=== PATIENT | female | born 1970 | race African-American/Black ===

== ENCOUNTER 2016-07-06 11:27 | Emergency (ER) | payer BC ==
[2016-07-06] MEDS ORDERED: ONDANSETRON 4MG/2ML VIAL (J2405) As Ordered ONE (12:37)
[2016-07-06] MEDS ORDERED: KETOROLAC 30 MG/ML VIAL (J1885) As Ordered ONE (12:37)
[2016-07-06 12:57] LABS: BASO # 0.1 K/mm3 (0.0-0.2); BASO % 1.5 % (0.0-1.0); EOS # 0.2 K/mm3 (0.0-0.50); EOS % 2.4 % (0.0-3.0); LARGE UNSTAINED CELL # 0.1 K/mm3 (0.0-0.4); LARGE UNSTAINED CELL % 1.8 % (0.0-4.0); LYMPH # 3.2 K/mm3 (1.5-4.5); LYMPH % 38.5 % (24.0-44.0); MEAN CORPUSCULAR HEMOGLOBIN 30.6 pg (27.0-33.0); MEAN CORPUSCULAR HGB CONC 32.6 g/dl (32.0-36.5); MEAN CORPUSCULAR VOLUME 93.9 fl (80.0-96.0); MONO # 0.4 K/mm3 (0.0-0.8); MONO % 4.4 % (0.0-5.0); NEUTROPHILS # 4.1 K/mm3 (1.8-7.7); NEUTROPHILS % 51.4 % (36.0-66.0); PLATELET COUNT, AUTOMATED 203 k/mm3 (150-450); RED CELL DISTRIBUTION WIDTH 13.2 % (11.5-14.5)
[2016-07-06 13:23] LABS: ALBUMIN 3.8 GM/DL (3.2-5.2); ALKALINE PHOSPHATASE 72 U/L (45-117); ALT/SGPT 23 U/L (12-78); AMYLASE 45 U/L (25-115); ANION GAP 6 MEQ/L (8-16); AST/SGOT 11 U/L (15-37); BILIRUBIN,DIRECT < 0.1 MG/DL (0.0-0.2); BILIRUBIN,TOTAL 0.4 MG/DL (0.2-1.0); BLOOD UREA NITROGEN 7 MG/DL (7-18); CALCIUM LEVEL 9.1 MG/DL (8.5-10.1); CARBON DIOXIDE LEVEL 27 MEQ/L (21-32); CHLORIDE LEVEL 106 MEQ/L (98-107); CREATININE FOR GFR 0.72 MG/DL (0.55-1.02); GLOMERULAR FILTRATION RATE > 60.0 (>58); GLUCOSE, FASTING 97 MG/DL (70-105); POTASSIUM SERUM 3.8 MEQ/L (3.5-5.1); SODIUM LEVEL 139 MEQ/L (136-145); TOTAL PROTEIN 7.6 GM/DL (6.4-8.2)
--- NOTE | 2016-07-06 14:05 | REP ---
CT abdomen and pelvis without contrast, 07/06/2016: Indication: Mid abdominal pain, renal colic. Comparison: None. Technique: 3 mm spiral axial sections performed through the abdomen and pelvis without contrast. Lung bases are clear bilaterally. The liver, spleen, pancreas are unremarkable. The gallbladder partially contracted without stones, wall thickening or biliary dilatation. The adrenal glands are normal. There is moderate right renal pelviectasis with tapering at the right ureteral vesicle junction which can be consistent with narrowing and/or stenosis. There is no visualized obstructing calculi along the course of the right ureter. The left kidney also without hydronephrosis. There is no perinephric stranding seen bilaterally. Bladder is diffusely contracted and poorly visualized. Stomach and small bowel are within normal limits. Abdominal aorta is of normal course and caliber. There are no pathologically enlarged retroperitoneal nodes. Small umbilical hernia of 8 mm diameter contains omental fat only. The appendix is without inflammation terminal ileum is normal. Uterus is unremarkable. Ovaries are grossly normal in appearance. There is moderate diffuse retained colonic stool. There is no free air or ascites. Impression: Findings most compatible with moderate right renal pelviectasis and narrowing at the right ureteropelvic junction. No visualized obstructing ureteral calculi bilaterally. Unremarkable appendix. If symptoms persist may consider CT abdomen and pelvis with hematuria protocol. Signed by Freya Vines MD 07/08/2016 10:49 A
--- NOTE | 2016-07-06 15:03 | EDDOCDS ---
Nurse's Notes [facility] Name: Karissa Connors Age: 45 yrs Sex: Female : 1970 Arrival Date: 07/06/2016 Time: 11:27 Bed I3 / M3 Private MD: Other - Complete Info On Cds Diagnosis: Dysuria;Hematuria-No Stone on CT Presentation: 07/06 11:35 Presenting complaint: Patient states: pain in abdomen hurts worse with urination when [facility] it radiates into back and buttock, for a couple of days. Risk factors: the patient reports no vaginal bleeding. Adult Sepsis Screening: The patient does not have new or worsening altered mentation. Patient's respiratory rate is less than 22. Systolic blood pressure is greater than 100. Patient has a qSOFA score of 0- Negative Sepsis Screen. Suicide/Homicide risk assessment- the patient denies having any suicidal and/or homicidal ideations and does not present with any other emotional, behavioral or mental health complaints. Status: Patient is not a advisory services associate or dependent. Transition of care: patient was not received from another setting of care. 11:35 Acuity: JOANIE Level 3 [facility] 11:35 Method Of Arrival: Walkin/Carried/Asstd [facility] Triage Assessment: 11:37 General: Appears uncomfortable, Behavior is appropriate for age, cooperative. Pain: [facility] Location: back, buttocks and abdomen Pain currently is 7 out of 10 on a pain scale. Pt Declines HIV testing. GI: Reports lower abdominal pain, nausea. : Reports pain in lower back with urination. 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 none - PMHx: none; - PSHx: Tubal ligation; - Social history: Smoking status: Patient uses tobacco products, light tobacco smoker. No barriers to communication noted. - Family history: Not pertinent. - : The pt / caregiver states he / she is not on anticoagulants. Home medication list is obtained from the patient. - Exposure Risk Screening:: None identified. Screenin:39 Screening information is obtained from the patient. Fall risk: No risks identified. [facility] Assistance ADL's: requires no assistance with activities of daily living. Abuse/DV Screen: The patient / caregiver reports he/she is: not in a situation that causes fear, pain or injury. Nutritional screening: No deficits noted. Advance Directives: Currently, there is no health care proxy. There is no active DNR order. There is no living will. There is no Power of Rivet Sorter. home support is adequate. Assessment: 12:54 General: Appears in no apparent distress, Behavior is appropriate for age, cooperative. srm Neurological: No deficits noted. Cardiovascular: No deficits noted. GI: Abdomen is non- distended. : Reports pain lower quadrant(s) with urination. 13:37 Reassessment: Patient states symptoms have improved. awaiting rad and lab reports and srm QUENTIN chiu. General: Appears in no apparent distress, Behavior is appropriate for age, cooperative. Respiratory: No deficits noted. Derm: No deficits noted. 15:00 Adult Sepsis Screening: The patient does not have new or worsening altered mentation. dsf Patient's respiratory rate is less than 22. Systolic blood pressure is greater than 100. Patient has a qSOFA score of 0- Negative Sepsis Screen. General: Appears in no apparent distress, comfortable, Behavior is appropriate for age, cooperative. Pain: Pain currently is 3 out of 10 on a pain scale. Neurological: Level of Consciousness is awake, alert. Cardiovascular: Capillary refill < 3 seconds. Respiratory: Airway is patent Respiratory effort is even, unlabored, Respiratory pattern is regular, symmetrical. GI: Abdomen is non- distended Bowel sounds present X 4 quads. Abd is soft and non tender X 4 quads. Derm: Skin is pink, warm & dry. Vital Signs: 11:29 BP 108 / 83 RA Sitting (auto/reg); Pulse 82 RA; Resp 18 S; Temp 98.2(O); Pulse Ox 96% mt4 on R/A; Weight 69.85 kg (R); Height 5 ft. 5 in. (165.10 cm) (R); Pain 7/10; 13:32 BP 114 / 69; Pulse 57; Resp 20; Temp 97.9; Pulse Ox 97% ; Pain 3/10; jam1 14:44 BP 119 / 85; Pulse 67; Resp 20; Temp 97.3; Pulse Ox 98% ; Pain 3/10; jam1 11:29 Body Mass Index 25.63 (69.85 kg, 165.10 cm) mt4 Vitals: 11:29 Log In Time: July 06, 2016 at 11:27. mt4 ED Course: 11:28 Patient visited by Kita Contreras. mt4 11:28 Patient moved to Waiting mt4 11:29 Other - Complete Info On Cds is Private Physician. mt4 11:31 Patient moved to Pre RCE mt4 11:36 Triage Initiated cj 11:45 Patient moved to Triage 1 kr3 12:19 Reyna Robles PA-C is PHCP. ef1 12:20 Venkata Stringer MD is Attending Physician. ef1 12:21 Patient visited by Reyna Robles PA-C. ef1 12:29 Patient moved to I3 / M3 kr3 12:29 Pt greeted and oriented to ED. Patient advised of names of staff involved in care, jam1 location of call gonzalez, wait times and NPO status. Patient has correct armband on for positive identification. Placed in gown. Bed in low position. Call light in reach. Side rails up X 1. Door closed. 12:32 Urinalysis Sent. kr3 12:32 Urine Culture Sent. kr3 12:38 [facility] Payment Agreement was scanned into [employer] and attached to record. lg 12:44 Patient visited by Reyna Robles PA-C. ef1 12:45 The patient / caregiver is instructed regarding the plan of care and ED course. srm 12:45 Inserted saline lock: 20 gauge in right antecubital area and blood collected. srm 12:52 Basic Metabolic Profile Sent. srm 12:52 CBC with Diff Sent. srm 12:52 Lipase Sent. srm 12:52 Liver Profile Sent. srm 12:55 Patient visited by Lita Muñoz RN. srm 13:37 Patient visited by Lita Muñoz, CHERRIE. srm 14:13 Patient visited by Reyna Robles PA-C. ef1 14:34 CT ABD & PELVIS: No Contrast Returned. EDMS 14:40 Patient visited by Reyna Robles PA-C. ef1 14:44 Sourav Laughlin is Referral Physician. ef1 15:01 Discontinued lock intact, bleeding controlled, pressure dressing applied, No dsf redness/swelling at site. No procedures done that require assistance. Administered Medications: 12:46 Drug: NS 0.9% 1000 ml [sodium chloride 0.9 % intravenous solution] Route: IV; Rate: srm bolus; Site: right antecubital; 14:10 Follow up: IV Status: Completed infusion srm 15:00 Follow up: IV Status: Completed infusion; IV Intake: 1000ml dsf 12:46 Drug: Ondansetron 4 mg [ondansetron HCl 2 mg/mL intravenous solution (2 mL)] Route: srm IVP; Site: right femoral; 12:47 Drug: ketorolac 30 mg [ketorolac 30 mg/mL (1 mL) injection solution (1 mL)] Route: IVP; srm Site: right antecubital; 13:36 Follow up: Response: Pain is decreased srm Intake: 15:00 IV: 1000.00ml; Total: 1000.00ml. dsf Order Results: Lab Order: Amylase; SPEC'M 07/06/16 12:50 Test: AMYLASE; Value: 45; Range: 25-115; Units: U/L; Status: F Lab Order: Basic Metabolic Profile; SPEC'M 07/06/16 12:50 Test: GLUCOSE, FASTING; Value: 97; Range: 70-105; Units: MG/DL; Status: F Test: BLOOD UREA NITROGEN; Value: 7; Range: 7-18; Units: MG/DL; Status: F Test: CREATININE FOR GFR; Value: 0.72; Range: 0.55-1.02; Units: MG/DL; Status: F Test: GLOMERULAR FILTRATION RATE; Value: > 60.0; Range: >58; Status: F Test: SODIUM LEVEL; Value: 139; Range: 136-145; Units: MEQ/L; Status: F Test: POTASSIUM SERUM; Value: 3.8; Range: 3.5-5.1; Units: MEQ/L; Status: F Test: CHLORIDE LEVEL; Value: 106; Range: 98-107; Units: MEQ/L; Status: F Test: CARBON DIOXIDE LEVEL; Value: 27; Range: 21-32; Units: MEQ/L; Status: F Test: ANION GAP; Value: 6; Range: 8-16; Abnormal: Below low normal; Units: MEQ/L; Status: F Test: CALCIUM LEVEL; Value: 9.1; Range: 8.5-10.1; Units: MG/DL; Status: F Test Note: ; Units are mL/min/1.73 m2 Chronic Kidney Disease Staging per NKF: Stage I & II GFR >=60 Normal to Mildly Decreased Stage III GFR 30-59 Moderately Decreased Stage IV GFR 15-29 Severely Decreased Stage V GFR <15 Very Little GFR Left ESRD GFR <15 on RECRUITMENT OFFICER Lab Order: CBC with Diff; SPEC'M 07/06/16 12:50 Test: WHITE BLOOD COUNT; Value: 8.0; Range: 4.0-10.0; Units: K/mm3; Status: F Test: RED BLOOD COUNT; Value: 4.88; Range: 4.00-5.40; Units: M/mm3; Status: F Test: HEMOGLOBIN; Value: 14.9; Range: 12.0-16.0; Units: g/dl; Status: F Test: HEMATOCRIT; Value: 45.8; Range: 36.0-47.0; Units: %; Status: F Test: MEAN CORPUSCULAR VOLUME; Value: 93.9; Range: 80.0-96.0; Units: fl; Status: F Test: MEAN CORPUSCULAR HEMOGLOBIN; Value: 30.6; Range: 27.0-33.0; Units: pg; Status: F Test: MEAN CORPUSCULAR HGB CONC; Value: 32.6; Range: 32.0-36.5; Units: g/dl; Status: F Test: RED CELL DISTRIBUTION WIDTH; Value: 13.2; Range: 11.5-14.5; Units: %; Status: F Test: PLATELET COUNT, AUTOMATED; Value: 203; Range: 150-450; Units: k/mm3; Status: F Test: NEUTROPHILS %; Value: 51.4; Range: 36.0-66.0; Units: %; Status: F Test: LYMPH %; Value: 38.5; Range: 24.0-44.0; Units: %; Status: F Test: MONO %; Value: 4.4; Range: 0.0-5.0; Units: %; Status: F Test: EOS %; Value: 2.4; Range: 0.0-3.0; Units: %; Status: F Test: BASO %; Value: 1.5; Range: 0.0-1.0; Abnormal: Above high normal; Units: %; Status: F Test: LARGE UNSTAINED CELL %; Value: 1.8; Range: 0.0-4.0; Units: %; Status: F Test: NEUTROPHILS #; Value: 4.1; Range: 1.8-7.7; Units: K/mm3; Status: F Test: LYMPH #; Value: 3.2; Range: 1.5-4.5; Units: K/mm3; Status: F Test: MONO #; Value: 0.4; Range: 0.0-0.8; Units: K/mm3; Status: F Test: EOS #; Value: 0.2; Range: 0.0-0.50; Units: K/mm3; Status: F Test: BASO #; Value: 0.1; Range: 0.0-0.2; Units: K/mm3; Status: F Test: LARGE UNSTAINED CELL #; Value: 0.1; Range: 0.0-0.4; Units: K/mm3; Status: F Lab Order: Lipase; SPEC'M 07/06/16 12:50 Test: LIPASE; Value: 116; Range: 73-393; Units: U/L; Status: F Lab Order: Liver Profile; SPEC'M 07/06/16 12:50 Test: AST/SGOT; Value: 11; Range: 15-37; Abnormal: Below low normal; Units: U/L; Status: F Test: ALT/SGPT; Value: 23; Range: 12-78; Units: U/L; Status: F Test: ALKALINE PHOSPHATASE; Value: 72; Range: 45-117; Units: U/L; Status: F Test: BILIRUBIN,TOTAL; Value: 0.4; Range: 0.2-1.0; Units: MG/DL; Status: F Test: BILIRUBIN,DIRECT; Value: < 0.1; Range: 0.0-0.2; Units: MG/DL; Status: F Test: TOTAL PROTEIN; Value: 7.6; Range: 6.4-8.2; Units: GM/DL; Status: F Test: ALBUMIN; Value: 3.8; Range: 3.2-5.2; Units: GM/DL; Status: F Test: ALBUMIN/GLOBULIN RATIO; Value: 1.00; Range: 1.00-1.93; Status: F Lab Order: Urinalysis; SPEC'M 07/06/16 12:30 Test: APPEARANCE, URINE; Value: CLEAR; Range: CLEAR; Status: F Test: COLOR, URINE; Value: YELLOW; Range: YELLOW; Status: F Test: PH,URINE; Value: 6.0; Range: 5.0-9.0; Units: UNITS; Status: F Test: SPECIFIC GRAVITY URINE AUTO; Value: 1.005; Range: 1.002-1.035; Status: F Test: PROTEIN, URINE AUTO; Value: NEGATIVE; Range: NEGATIVE; Units: mg/dL; Status: F Test: GLUCOSE, URINE (UA) AUTO; Value: NEGATIVE; Range: NEGATIVE; Units: mg/dL; Status: F Test: KETONE, URINE AUTO; Value: NEGATIVE; Range: NEGATIVE; Units: mg/dL; Status: F Test: UROBILINOGEN, URINE AUTO; Value: 0.2; Range: 0.0-2.0; Units: mg/dL; Status: F Test: BILIRUBIN, URINE AUTO; Value: NEGATIVE; Range: NEGATIVE; Status: F Test: NITRITE, URINE AUTO; Value: NEGATIVE; Range: NEGATIVE; Status: F Test: LEUKOCYTE ESTERASE, URINE AUTO; Value: NEGATIVE; Range: NEGATIVE; Status: F Test: BLOOD, URINE BLOOD; Value: 1+; Range: NEGATIVE; Abnormal: Above high normal; Status: F Test: WBC, URINE AUTO; Value: 0; Range: 0-3; Units: /HPF; Status: F Test: RBC, URINE AUTO; Value: 2; Range: 0-3; Units: /HPF; Status: F Test: BACTERIA, URINE AUTO; Value: NEGATIVE; Range: NEGATIVE; Status: F Test: SQUAMOUS EPITHELIAL CELL UR AU; Value: 4; Range: 0-6; Units: /HPF; Status: F Test: HYALINE CAST, URINE AUTO; Value: 0; Range: 0-1; Units: /LPF; Status: F Radiology Order: CT ABD & PELVIS: No Contrast Test: CT ABD & PELVIS: No Contrast REASON FOR EXAMINATION: Renal colic; CT abdomen and pelvis without contrast, 07/06/2016:; ; Indication: Mid abdominal pain, renal colic.; ; Comparison: None.; ; Technique: 3 mm spiral axial sections performed through the abdomen and pelvis; without contrast.; ; Lung bases are clear bilaterally. The liver, spleen, pancreas are unremarkable.; The gallbladder partially contracted without stones, wall thickening or biliary; dilatation. The adrenal glands are normal. There is moderate right renal; pelviectasis with tapering at the right ureteral vesicle junction which can be; consistent with narrowing and/or stenosis. There is no visualized obstructing; calculi along the course of the right ureter. The left kidney also without; hydronephrosis. There is no perinephric stranding seen bilaterally. Bladder is; diffusely contracted and poorly visualized.; ; Stomach and small bowel are within normal limits. Abdominal aorta is of normal; course and caliber. There are no pathologically enlarged retroperitoneal nodes.; ; Small umbilical hernia of 8 mm diameter contains omental fat only.; ; The appendix is without inflammation terminal ileum is normal. Uterus is; unremarkable. Ovaries are grossly normal in appearance. There is moderate; diffuse retained colonic stool. There is no free air or ascites.; ; Impression:; Findings most compatible with moderate right renal pelviectasis and narrowing at; the right ureteropelvic junction. No visualized obstructing ureteral calculi; bilaterally.; ; Unremarkable appendix.; ; If symptoms persist may consider CT abdomen and pelvis with hematuria protocol.; ; ; ; ; Unreviewed; Outcome: 14:44 Discharge ordered by Provider. ef1 15:01 Discharge Assessment: Patient awake, alert and oriented x 3. No cognitive and/or dsf functional deficits noted. Patient verbalized understanding of disposition instructions. patient administered narcotics - no. The following High Risk Discharge criteria are identified: None. Discharged to home ambulatory. Condition: stable. Discharge instructions given to patient, Instructed on discharge instructions, follow up and referral plans. medication usage, Demonstrated understanding of instructions, medications, Pt was receptive of discharge instructions/ teaching. Prescriptions given X 3. CT Study completed. Property sent home with patient. 15:01 Patient left the ED. dsf Signatures: Dispatcher [employer] EDMS Lita Muñoz, RN RN Gretel Alvares, BERTHA REACTOR FUELING SUPERVISOR jam1 John Zamorano Reg Reg lg Robie, KathleenRN RN kr3 Kita Contreras mt4 Reyna Robles, PA-C PA-C ef1 Norma AdamsRN RN dsf Gretel Nguyen,RN RN [facility] Corrections: (The following items were deleted from the chart) 12:29 11:37 PSHx: none; [facility] kr3 12:53 12:00 NS 0.9% 1000 ml IV at bolus in right antecubital srm srm MTDD
--- NOTE | 2016-07-06 15:03 | EDDOCDS ---
Physician Documentation [facility] Name: Karissa Connors Age: 45 yrs Sex: Female : 1970 Arrival Date: 07/06/2016 Time: 11:27 Bed I3 / M3 Private MD: Other - Complete Info On Cds Disposition: 07/06/16 14:44 Discharged to Home/Self Care. Impression: Dysuria, Hematuria - No Stone on CT. - Condition is Stable. - Discharge Instructions: Dysuria, Hematuria, Adult. - Prescriptions for Pyridium 200 mg Oral Tablet - take 1 tablet by ORAL route every 8 hours for 3 days; 9 tablet. Flomax 0.4 mg Oral Capsule, Sust. Release 24 hr - take 1 capsule by ORAL route once daily 1/2 hour following the same meal each day; 30 capsule. ketorolac 10 mg Oral Tablet - take 1 tablet by ORAL route 3 times per day As needed MDD- 30mg. Up to 5 days total use.; 15 tablet. - Medication Reconciliation, Local Pharmacy Hours form. - Follow up: Private Physician; When: 1 - 2 days; Reason: Recheck today's complaints, Continuance of care. Follow up: Emergency Department; Reason: Worsening of conditions. Follow up: Sourav Laughlin; When: Call to arrange an appointment; Reason: Further diagnostic work-up, Recheck today's complaints, Continuance of care. - Problem is new. - Symptoms have improved. Historical: - Allergies: no known allergies; - Home Meds: 1. none - PMHx: none; - PSHx: Tubal ligation; - Social history: Smoking status: Patient uses tobacco products, light tobacco smoker. No barriers to communication noted. - Family history: Not pertinent. - : The pt / caregiver states he / she is not on anticoagulants. Home medication list is obtained from the patient. - Exposure Risk Screening:: None identified. 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 5 in. (165.10 cm) (R); Pain 7/10; 13:32 BP 114 / 69; Pulse 57; Resp 20; Temp 97.9; Pulse Ox 97% ; Pain 3/10; jam1 14:44 BP 119 / 85; Pulse 67; Resp 20; Temp 97.3; Pulse Ox 98% ; Pain 3/10; jam1 11:29 Body Mass Index 25.63 (69.85 kg, 165.10 cm) mt4 MDM: 12:23 Financial registration complete. lg 12:26 NS 0.9% 1000 ml IV at bolus once ordered. ef1 12:26 Ondansetron 4 mg IVP once ordered. ef1 12:26 ketorolac 30 mg IVP once ordered. ef1 12:26 IV Saline Lock ordered. ef1 12:26 Undress patient appropriately for examination ordered. ef1 12:27 Amylase Ordered. EDMS 12:27 Basic Metabolic Profile Ordered. EDMS 12:27 CBC with Diff Ordered. EDMS 12:27 Lipase Ordered. EDMS 12:27 Liver Profile Ordered. EDMS 12:27 Urinalysis Ordered. EDMS 12:27 Urine Culture Ordered. EDMS 12:27 CT ABD & PELVIS: No Contrast Ordered. EDMS 12:27 NOTHING BY MOUTH+DIET ordered. EDMS 12:38 [facility] [place] was scanned into [employer] and attached to record. lg 12:44 Urinalysis Reviewed. ef1 12:53 NS 0.9% 1000 ml IV at bolus once ordered. srm 13:40 Basic Metabolic Profile Reviewed. ef1 13:40 CBC with Diff Reviewed. ef1 13:40 Liver Profile Reviewed. ef1 13:40 Amylase Reviewed. ef1 13:40 Lipase Reviewed. ef1 14:40 CT ABD & PELVIS: No Contrast Reviewed. ef1 Administered Medications: 12:46 Drug: NS 0.9% 1000 ml [sodium chloride 0.9 % intravenous solution] Route: IV; Rate: srm bolus; Site: right antecubital; 14:10 Follow up: IV Status: Completed infusion srm 15:00 Follow up: IV Status: Completed infusion; IV Intake: 1000ml dsf 12:46 Drug: Ondansetron 4 mg [ondansetron HCl 2 mg/mL intravenous solution (2 mL)] Route: srm IVP; Site: right femoral; 12:47 Drug: ketorolac 30 mg [ketorolac 30 mg/mL (1 mL) injection solution (1 mL)] Route: IVP; srm Site: right antecubital; 13:36 Follow up: Response: Pain is decreased srm Signatures: Dispatcher [employer] Lita Romero RN RN srm John Zamorano, Brodie Reg lg Mariella Dhillon,CHERRIE RN kr3 Reyna Robles, PA-C PANorma Robles RN RN dsf Hafner, Jane, RN RN [facility] The chart was reviewed and I authenticate all verbal orders and agree with the evaluation and treatment provided.Corrections: (The following items were deleted from the chart) 12:29 11:37 PSHx: none; pankaj kr3 Attachments: 12:38 [facility] [place] lg MTDD
--- NOTE | 2016-07-08 16:02 | EDDOCDS ---
Physician Documentation [facility] Name: Karissa Connors Age: 45 yrs Sex: Female : 1970 Arrival Date: 07/06/2016 Time: 11:27 Bed I3 / M3 Private MD: Other - Complete Info On Cds Disposition: 07/06/16 14:44 Discharged to Home/Self Care. Impression: Dysuria, Hematuria - No Stone on CT. - Condition is Stable. - Discharge Instructions: Dysuria, Hematuria, Adult. - Prescriptions for Pyridium 200 mg Oral Tablet - take 1 tablet by ORAL route every 8 hours for 3 days; 9 tablet. Flomax 0.4 mg Oral Capsule, Sust. Release 24 hr - take 1 capsule by ORAL route once daily 1/2 hour following the same meal each day; 30 capsule. ketorolac 10 mg Oral Tablet - take 1 tablet by ORAL route 3 times per day As needed MDD- 30mg. Up to 5 days total use.; 15 tablet. - Medication Reconciliation, Local Pharmacy Hours form. - Follow up: Private Physician; When: 1 - 2 days; Reason: Recheck today's complaints, Continuance of care. Follow up: Emergency Department; Reason: Worsening of conditions. Follow up: Sourav Laughlin; When: Call to arrange an appointment; Reason: Further diagnostic work-up, Recheck today's complaints, Continuance of care. - Problem is new. - Symptoms have improved. Historical: - Allergies: no known allergies; - Home Meds: 1. none - PMHx: none; - PSHx: Tubal ligation; - Social history: Smoking status: Patient uses tobacco products, light tobacco smoker. No barriers to communication noted. - Family history: Not pertinent. - : The pt / caregiver states he / she is not on anticoagulants. Home medication list is obtained from the patient. - Exposure Risk Screening:: None identified. COLLEGE INTERN: 07/06 11:37 LMP 06/21/[address] [facility] Vital Signs: 11:29 BP 108 / 83 RA Sitting (auto/reg); Pulse 82 RA; Resp 18 S; Temp 98.2(O); Pulse Ox 96% mt4 on R/A; Weight 69.85 kg / 153.99 lbs (R); Height 5 ft. 5 in. (165.10 cm) (R); Pain 7/10; 13:32 BP 114 / 69; Pulse 57; Resp 20; Temp 97.9; Pulse Ox 97% ; Pain 3/10; jam1 14:44 BP 119 / 85; Pulse 67; Resp 20; Temp 97.3; Pulse Ox 98% ; Pain 3/10; jam1 11:29 Body Mass Index 25.63 (69.85 kg, 165.10 cm) mt4 MDM: 12:23 Financial registration complete. lg 12:26 NS 0.9% 1000 ml IV at bolus once ordered. ef1 12:26 Ondansetron 4 mg IVP once ordered. ef1 12:26 ketorolac 30 mg IVP once ordered. ef1 12:26 IV Saline Lock ordered. ef1 12:26 Undress patient appropriately for examination ordered. ef1 12:27 Amylase Ordered. EDMS 12:27 Basic Metabolic Profile Ordered. EDMS 12:27 CBC with Diff Ordered. EDMS 12:27 Lipase Ordered. EDMS 12:27 Liver Profile Ordered. EDMS 12:27 Urinalysis Ordered. EDMS 12:27 Urine Culture Ordered. EDMS 12:27 CT ABD & PELVIS: No Contrast Ordered. EDMS 12:27 NOTHING BY MOUTH+DIET ordered. EDMS 12:38 [facility] [place] was scanned into [employer] and attached to record. lg 12:44 Urinalysis Reviewed. ef1 12:53 NS 0.9% 1000 ml IV at bolus once ordered. srm 13:40 Basic Metabolic Profile Reviewed. ef1 13:40 CBC with Diff Reviewed. ef1 13:40 Liver Profile Reviewed. ef1 13:40 Amylase Reviewed. ef1 13:40 Lipase Reviewed. ef1 14:40 CT ABD & PELVIS: No Contrast Reviewed. ef1 15:56 T-Sheet-- Draft Copy was scanned into [employer] and attached to record. klr Administered Medications: 12:46 Drug: NS 0.9% 1000 ml [sodium chloride 0.9 % intravenous solution] Route: IV; Rate: srm bolus; Site: right antecubital; 14:10 Follow up: IV Status: Completed infusion srm 15:00 Follow up: IV Status: Completed infusion; IV Intake: 1000ml dsf 12:46 Drug: Ondansetron 4 mg [ondansetron HCl 2 mg/mL intravenous solution (2 mL)] Route: srm IVP; Site: right femoral; 12:47 Drug: ketorolac 30 mg [ketorolac 30 mg/mL (1 mL) injection solution (1 mL)] Route: IVP; srm Site: right antecubital; 13:36 Follow up: Response: Pain is decreased srm Signatures: Dispatcher [employer] EDLita Akers RN RN srm Ganter, LoriLee, Brodie Reg Mariella Dhillon RN RN kr3 Reyna Robles PA-C PANorma Robles RN RN dsf Hafner, Jane, RN RN cjh Redder, Kathie klr The chart was reviewed and I authenticate all verbal orders and agree with the evaluation and treatment provided.Corrections: (The following items were deleted from the chart) 12:29 11:37 PSHx: none; pankaj barton Attachments: 12:38 [facility] Payment Agreement lg 15:56 T-Sheet-- Draft Copy klr Chart Complete MTDD
--- NOTE | 2016-07-08 16:02 | EDDOCDS ---
Nurse's Notes [facility] Name: Karissa Connors Age: 45 yrs Sex: Female : 1970 Arrival Date: 07/06/2016 Time: 11:27 Bed I3 / M3 Private MD: Other - Complete Info On Cds Diagnosis: Dysuria;Hematuria-No Stone on CT Presentation: 07/06 11:35 Presenting complaint: Patient states: pain in abdomen hurts worse with urination when [facility] it radiates into back and buttock, for a couple of days. Risk factors: the patient reports no vaginal bleeding. Adult Sepsis Screening: The patient does not have new or worsening altered mentation. Patient's respiratory rate is less than 22. Systolic blood pressure is greater than 100. Patient has a qSOFA score of 0- Negative Sepsis Screen. Suicide/Homicide risk assessment- the patient denies having any suicidal and/or homicidal ideations and does not present with any other emotional, behavioral or mental health complaints. Status: Patient is not a office service coordinator or dependent. Transition of care: patient was not received from another setting of care. 11:35 Acuity: JOANIE Level 3 [facility] 11:35 Method Of Arrival: Walkin/Carried/Asstd [facility] Triage Assessment: 11:37 General: Appears uncomfortable, Behavior is appropriate for age, cooperative. Pain: [facility] Location: back, buttocks and abdomen Pain currently is 7 out of 10 on a pain scale. Pt Declines HIV testing. GI: Reports lower abdominal pain, nausea. : Reports pain in lower back with urination. ANESTHESIOLOGY PHYSICIAN: 11:37 LMP 06/21/2016 [facility] Historical: - Allergies: no known allergies; - Home Meds: 1. none - PMHx: none; - PSHx: Tubal ligation; - Social history: Smoking status: Patient uses tobacco products, light tobacco smoker. No barriers to communication noted. - Family history: Not pertinent. - : The pt / caregiver states he / she is not on anticoagulants. Home medication list is obtained from the patient. - Exposure Risk Screening:: None identified. Screenin:39 Screening information is obtained from the patient. Fall risk: No risks identified. [facility] Assistance ADL's: requires no assistance with activities of daily living. Abuse/DV Screen: The patient / caregiver reports he/she is: not in a situation that causes fear, pain or injury. Nutritional screening: No deficits noted. Advance Directives: Currently, there is no health care proxy. There is no active DNR order. There is no living will. There is no Power of Operations Support Manager. home support is adequate. Assessment: 12:54 General: Appears in no apparent distress, Behavior is appropriate for age, cooperative. srm Neurological: No deficits noted. Cardiovascular: No deficits noted. GI: Abdomen is non- distended. : Reports pain lower quadrant(s) with urination. 13:37 Reassessment: Patient states symptoms have improved. awaiting rad and lab reports and srm QUENTIN chiu. General: Appears in no apparent distress, Behavior is appropriate for age, cooperative. Respiratory: No deficits noted. Derm: No deficits noted. 15:00 Adult Sepsis Screening: The patient does not have new or worsening altered mentation. dsf Patient's respiratory rate is less than 22. Systolic blood pressure is greater than 100. Patient has a qSOFA score of 0- Negative Sepsis Screen. General: Appears in no apparent distress, comfortable, Behavior is appropriate for age, cooperative. Pain: Pain currently is 3 out of 10 on a pain scale. Neurological: Level of Consciousness is awake, alert. Cardiovascular: Capillary refill < 3 seconds. Respiratory: Airway is patent Respiratory effort is even, unlabored, Respiratory pattern is regular, symmetrical. GI: Abdomen is non- distended Bowel sounds present X 4 quads. Abd is soft and non tender X 4 quads. Derm: Skin is pink, warm & dry. Vital Signs: 11:29 BP 108 / 83 RA Sitting (auto/reg); Pulse 82 RA; Resp 18 S; Temp 98.2(O); Pulse Ox 96% mt4 on R/A; Weight 69.85 kg (R); Height 5 ft. 5 in. (165.10 cm) (R); Pain 7/10; 13:32 BP 114 / 69; Pulse 57; Resp 20; Temp 97.9; Pulse Ox 97% ; Pain 3/10; jam1 14:44 BP 119 / 85; Pulse 67; Resp 20; Temp 97.3; Pulse Ox 98% ; Pain 3/10; jam1 11:29 Body Mass Index 25.63 (69.85 kg, 165.10 cm) mt4 Vitals: 11:29 Log In Time: July 06, 2016 at 11:27. mt4 ED Course: 11:28 Patient visited by Kita Contreras. mt4 11:28 Patient moved to Waiting mt4 11:29 Other - Complete Info On Cds is Private Physician. mt4 11:31 Patient moved to Pre RCE mt4 11:36 Triage Initiated [facility] 11:45 Patient moved to Triage 1 kr3 12:19 Reyna Robles PA-C is PHCP. ef1 12:20 Venkata Stringer MD is Attending Physician. ef1 12:21 Patient visited by Reyna Robles PA-C. ef1 12:29 Patient moved to I3 / M3 kr3 12:29 Pt greeted and oriented to ED. Patient advised of names of staff involved in care, jam1 location of call gonzalez, wait times and NPO status. Patient has correct armband on for positive identification. Placed in gown. Bed in low position. Call light in reach. Side rails up X 1. Door closed. 12:32 Urinalysis Sent. kr3 12:32 Urine Culture Sent. kr3 12:38 [facility] Payment Agreement was scanned into [employer] and attached to record. lg 12:44 Patient visited by Reyna Robles PA-C. ef1 12:45 The patient / caregiver is instructed regarding the plan of care and ED course. srm 12:45 Inserted saline lock: 20 gauge in right antecubital area and blood collected. srm 12:52 Basic Metabolic Profile Sent. srm 12:52 CBC with Diff Sent. srm 12:52 Lipase Sent. srm 12:52 Liver Profile Sent. srm 12:55 Patient visited by Lita Muñoz RN. srm 13:37 Patient visited by Lita Muñoz, CHERRIE. srm 14:13 Patient visited by Reyna Robles PA-C. ef1 14:34 CT ABD & PELVIS: No Contrast Returned. EDMS 14:40 Patient visited by Reyna Robles PA-C. ef1 14:44 Sourav Laughlin is Referral Physician. ef1 15:01 Discontinued lock intact, bleeding controlled, pressure dressing applied, No dsf redness/swelling at site. No procedures done that require assistance. 15:56 T-Sheet-- Draft Copy was scanned into [employer] and attached to record. klr 07/08 11:18 CT ABD & PELVIS: No Contrast Returned. EDMS Administered Medications: 07/06 12:46 Drug: NS 0.9% 1000 ml [sodium chloride 0.9 % intravenous solution] Route: IV; Rate: srm bolus; Site: right antecubital; 14:10 Follow up: IV Status: Completed infusion srm 15:00 Follow up: IV Status: Completed infusion; IV Intake: 1000ml dsf 12:46 Drug: Ondansetron 4 mg [ondansetron HCl 2 mg/mL intravenous solution (2 mL)] Route: srm IVP; Site: right femoral; 12:47 Drug: ketorolac 30 mg [ketorolac 30 mg/mL (1 mL) injection solution (1 mL)] Route: IVP; srm Site: right antecubital; 13:36 Follow up: Response: Pain is decreased srm Intake: 15:00 IV: 1000.00ml; Total: 1000.00ml. dsf Order Results: Lab Order: Amylase; SPEC'M 07/06/16 12:50 Test: AMYLASE; Value: 45; Range: 25-115; Units: U/L; Status: F Lab Order: Basic Metabolic Profile; SPEC'M 07/06/16 12:50 Test: GLUCOSE, FASTING; Value: 97; Range: 70-105; Units: MG/DL; Status: F Test: BLOOD UREA NITROGEN; Value: 7; Range: 7-18; Units: MG/DL; Status: F Test: CREATININE FOR GFR; Value: 0.72; Range: 0.55-1.02; Units: MG/DL; Status: F Test: GLOMERULAR FILTRATION RATE; Value: > 60.0; Range: >58; Status: F Test: SODIUM LEVEL; Value: 139; Range: 136-145; Units: MEQ/L; Status: F Test: POTASSIUM SERUM; Value: 3.8; Range: 3.5-5.1; Units: MEQ/L; Status: F Test: CHLORIDE LEVEL; Value: 106; Range: 98-107; Units: MEQ/L; Status: F Test: CARBON DIOXIDE LEVEL; Value: 27; Range: 21-32; Units: MEQ/L; Status: F Test: ANION GAP; Value: 6; Range: 8-16; Abnormal: Below low normal; Units: MEQ/L; Status: F Test: CALCIUM LEVEL; Value: 9.1; Range: 8.5-10.1; Units: MG/DL; Status: F Test Note: ; Units are mL/min/1.73 m2 Chronic Kidney Disease Staging per NKF: Stage I & II GFR >=60 Normal to Mildly Decreased Stage III GFR 30-59 Moderately Decreased Stage IV GFR 15-29 Severely Decreased Stage V GFR <15 Very Little GFR Left ESRD GFR <15 on MECHANICAL SYSTEMS CONTROL ENGINEER Lab Order: CBC with Diff; SPEC'M 07/06/16 12:50 Test: WHITE BLOOD COUNT; Value: 8.0; Range: 4.0-10.0; Units: K/mm3; Status: F Test: RED BLOOD COUNT; Value: 4.88; Range: 4.00-5.40; Units: M/mm3; Status: F Test: HEMOGLOBIN; Value: 14.9; Range: 12.0-16.0; Units: g/dl; Status: F Test: HEMATOCRIT; Value: 45.8; Range: 36.0-47.0; Units: %; Status: F Test: MEAN CORPUSCULAR VOLUME; Value: 93.9; Range: 80.0-96.0; Units: fl; Status: F Test: MEAN CORPUSCULAR HEMOGLOBIN; Value: 30.6; Range: 27.0-33.0; Units: pg; Status: F Test: MEAN CORPUSCULAR HGB CONC; Value: 32.6; Range: 32.0-36.5; Units: g/dl; Status: F Test: RED CELL DISTRIBUTION WIDTH; Value: 13.2; Range: 11.5-14.5; Units: %; Status: F Test: PLATELET COUNT, AUTOMATED; Value: 203; Range: 150-450; Units: k/mm3; Status: F Test: NEUTROPHILS %; Value: 51.4; Range: 36.0-66.0; Units: %; Status: F Test: LYMPH %; Value: 38.5; Range: 24.0-44.0; Units: %; Status: F Test: MONO %; Value: 4.4; Range: 0.0-5.0; Units: %; Status: F Test: EOS %; Value: 2.4; Range: 0.0-3.0; Units: %; Status: F Test: BASO %; Value: 1.5; Range: 0.0-1.0; Abnormal: Above high normal; Units: %; Status: F Test: LARGE UNSTAINED CELL %; Value: 1.8; Range: 0.0-4.0; Units: %; Status: F Test: NEUTROPHILS #; Value: 4.1; Range: 1.8-7.7; Units: K/mm3; Status: F Test: LYMPH #; Value: 3.2; Range: 1.5-4.5; Units: K/mm3; Status: F Test: MONO #; Value: 0.4; Range: 0.0-0.8; Units: K/mm3; Status: F Test: EOS #; Value: 0.2; Range: 0.0-0.50; Units: K/mm3; Status: F Test: BASO #; Value: 0.1; Range: 0.0-0.2; Units: K/mm3; Status: F Test: LARGE UNSTAINED CELL #; Value: 0.1; Range: 0.0-0.4; Units: K/mm3; Status: F Lab Order: Lipase; SPEC'M 07/06/16 12:50 Test: LIPASE; Value: 116; Range: 73-393; Units: U/L; Status: F Lab Order: Liver Profile; SPEC' 07/06/16 12:50 Test: AST/SGOT; Value: 11; Range: 15-37; Abnormal: Below low normal; Units: U/L; Status: F Test: ALT/SGPT; Value: 23; Range: 12-78; Units: U/L; Status: F Test: ALKALINE PHOSPHATASE; Value: 72; Range: 45-117; Units: U/L; Status: F Test: BILIRUBIN,TOTAL; Value: 0.4; Range: 0.2-1.0; Units: MG/DL; Status: F Test: BILIRUBIN,DIRECT; Value: < 0.1; Range: 0.0-0.2; Units: MG/DL; Status: F Test: TOTAL PROTEIN; Value: 7.6; Range: 6.4-8.2; Units: GM/DL; Status: F Test: ALBUMIN; Value: 3.8; Range: 3.2-5.2; Units: GM/DL; Status: F Test: ALBUMIN/GLOBULIN RATIO; Value: 1.00; Range: 1.00-1.93; Status: F Lab Order: Urinalysis; SPEC'M 07/06/16 12:30 Test: APPEARANCE, URINE; Value: CLEAR; Range: CLEAR; Status: F Test: COLOR, URINE; Value: YELLOW; Range: YELLOW; Status: F Test: PH,URINE; Value: 6.0; Range: 5.0-9.0; Units: UNITS; Status: F Test: SPECIFIC GRAVITY URINE AUTO; Value: 1.005; Range: 1.002-1.035; Status: F Test: PROTEIN, URINE AUTO; Value: NEGATIVE; Range: NEGATIVE; Units: mg/dL; Status: F Test: GLUCOSE, URINE (UA) AUTO; Value: NEGATIVE; Range: NEGATIVE; Units: mg/dL; Status: F Test: KETONE, URINE AUTO; Value: NEGATIVE; Range: NEGATIVE; Units: mg/dL; Status: F Test: UROBILINOGEN, URINE AUTO; Value: 0.2; Range: 0.0-2.0; Units: mg/dL; Status: F Test: BILIRUBIN, URINE AUTO; Value: NEGATIVE; Range: NEGATIVE; Status: F Test: NITRITE, URINE AUTO; Value: NEGATIVE; Range: NEGATIVE; Status: F Test: LEUKOCYTE ESTERASE, URINE AUTO; Value: NEGATIVE; Range: NEGATIVE; Status: F Test: BLOOD, URINE BLOOD; Value: 1+; Range: NEGATIVE; Abnormal: Above high normal; Status: F Test: WBC, URINE AUTO; Value: 0; Range: 0-3; Units: /HPF; Status: F Test: RBC, URINE AUTO; Value: 2; Range: 0-3; Units: /HPF; Status: F Test: BACTERIA, URINE AUTO; Value: NEGATIVE; Range: NEGATIVE; Status: F Test: SQUAMOUS EPITHELIAL CELL UR AU; Value: 4; Range: 0-6; Units: /HPF; Status: F Test: HYALINE CAST, URINE AUTO; Value: 0; Range: 0-1; Units: /LPF; Status: F Lab Order: Urine Culture; SPEC'M 07/06/16 12:30 Test: URINE CULTURE; Value: URINE CULTURE RESULT NO GROWTH; Status: F Radiology Order: CT ABD & PELVIS: No Contrast Test: CT ABD & PELVIS: No Contrast REASON FOR EXAMINATION: Renal colic; CT abdomen and pelvis without contrast, 07/06/2016:; ; Indication: Mid abdominal pain, renal colic.; ; Comparison: None.; ; Technique: 3 mm spiral axial sections performed through the abdomen and pelvis; without contrast.; ; Lung bases are clear bilaterally. The liver, spleen, pancreas are unremarkable.; The gallbladder partially contracted without stones, wall thickening or biliary; dilatation. The adrenal glands are normal. There is moderate right renal; pelviectasis with tapering at the right ureteral vesicle junction which can be; consistent with narrowing and/or stenosis. There is no visualized obstructing; calculi along the course of the right ureter. The left kidney also without; hydronephrosis. There is no perinephric stranding seen bilaterally. Bladder is; diffusely contracted and poorly visualized.; ; Stomach and small bowel are within normal limits. Abdominal aorta is of normal; course and caliber. There are no pathologically enlarged retroperitoneal nodes.; ; Small umbilical hernia of 8 mm diameter contains omental fat only.; ; The appendix is without inflammation terminal ileum is normal. Uterus is; unremarkable. Ovaries are grossly normal in appearance. There is moderate; diffuse retained colonic stool. There is no free air or ascites.; ; Impression:; ; Findings most compatible with moderate right renal pelviectasis and narrowing at; the right ureteropelvic junction. No visualized obstructing ureteral calculi; bilaterally.; ; Unremarkable appendix.; ; If symptoms persist may consider CT abdomen and pelvis with hematuria protocol.; ; ; Signed by; Freya Vines MD 07/08/2016 10:49 A; Outcome: 14:44 Discharge ordered by Provider. ef1 15:01 Discharge Assessment: Patient awake, alert and oriented x 3. No cognitive and/or dsf functional deficits noted. Patient verbalized understanding of disposition instructions. patient administered narcotics - no. The following High Risk Discharge criteria are identified: None. Discharged to home ambulatory. Condition: stable. Discharge instructions given to patient, Instructed on discharge instructions, follow up and referral plans. medication usage, Demonstrated understanding of instructions, medications, Pt was receptive of discharge instructions/ teaching. Prescriptions given X 3. CT Study completed. Property sent home with patient. 15:01 Patient left the ED. dsf Signatures: Dispatcher [facility] EDPA Lita Muñoz RN RN Gretel Alvares, SECURITY SYSTEMS INTEGRATOR SECURITY SYSTEMS INTEGRATOR jam1 John Zamorano, Reg Reg lg Mariella Dhillon,RN RN kr3 Kita Contreras dc4 Reyna Robles, TIFFANY PAMing efNorma Tompkins,RN RN Gretel Kellogg,RN RN Lacie Garcia Corrections: (The following items were deleted from the chart) 12: 11:37 PSHx: none; pankaj barton 12:53 12:00 NS 0.9% 1000 ml IV at bolus in right antecubital srm srm Chart Complete MTDD
--- NOTE | 2016-07-08 16:02 | EDDOCDS ---
Physician Documentation [facility] Name: Karissa Connors Age: 45 yrs Sex: Female : 1970 Arrival Date: 07/06/2016 Time: 11:27 Bed I3 / M3 Private MD: Other - Complete Info On Cds Disposition: 07/06/16 14:44 Discharged to Home/Self Care. Impression: Dysuria, Hematuria - No Stone on CT. - Condition is Stable. - Discharge Instructions: Dysuria, Hematuria, Adult. - Prescriptions for Pyridium 200 mg Oral Tablet - take 1 tablet by ORAL route every 8 hours for 3 days; 9 tablet. Flomax 0.4 mg Oral Capsule, Sust. Release 24 hr - take 1 capsule by ORAL route once daily 1/2 hour following the same meal each day; 30 capsule. ketorolac 10 mg Oral Tablet - take 1 tablet by ORAL route 3 times per day As needed MDD- 30mg. Up to 5 days total use.; 15 tablet. - Medication Reconciliation, Local Pharmacy Hours form. - Follow up: Private Physician; When: 1 - 2 days; Reason: Recheck today's complaints, Continuance of care. Follow up: Emergency Department; Reason: Worsening of conditions. Follow up: Sourav Laughlin; When: Call to arrange an appointment; Reason: Further diagnostic work-up, Recheck today's complaints, Continuance of care. - Problem is new. - Symptoms have improved. Historical: - Allergies: no known allergies; - Home Meds: 1. none - PMHx: none; - PSHx: Tubal ligation; - Social history: Smoking status: Patient uses tobacco products, light tobacco smoker. No barriers to communication noted. - Family history: Not pertinent. - : The pt / caregiver states he / she is not on anticoagulants. Home medication list is obtained from the patient. - Exposure Risk Screening:: None identified. SLIP LASTER: 07/06 11:37 LMP 06/21/2016 [facility] Vital Signs: 11:29 BP 108 / 83 RA Sitting (auto/reg); Pulse 82 RA; Resp 18 S; Temp 98.2(O); Pulse Ox 96% mt4 on R/A; Weight 69.85 kg / 153.99 lbs (R); Height 5 ft. 5 in. (165.10 cm) (R); Pain 7/10; 13:32 BP 114 / 69; Pulse 57; Resp 20; Temp 97.9; Pulse Ox 97% ; Pain 3/10; jam1 14:44 BP 119 / 85; Pulse 67; Resp 20; Temp 97.3; Pulse Ox 98% ; Pain 3/10; jam1 11:29 Body Mass Index 25.63 (69.85 kg, 165.10 cm) mt4 MDM: 12:23 Financial registration complete. lg 12:26 NS 0.9% 1000 ml IV at bolus once ordered. ef1 12:26 Ondansetron 4 mg IVP once ordered. ef1 12:26 ketorolac 30 mg IVP once ordered. ef1 12:26 IV Saline Lock ordered. ef1 12:26 Undress patient appropriately for examination ordered. ef1 12:27 Amylase Ordered. EDMS 12:27 Basic Metabolic Profile Ordered. EDMS 12:27 CBC with Diff Ordered. EDMS 12:27 Lipase Ordered. EDMS 12:27 Liver Profile Ordered. EDMS 12:27 Urinalysis Ordered. EDMS 12:27 Urine Culture Ordered. EDMS 12:27 CT ABD & PELVIS: No Contrast Ordered. EDMS 12:27 NOTHING BY MOUTH+DIET ordered. EDMS 12:38 [facility] [place] was scanned into [employer] and attached to record. lg 12:44 Urinalysis Reviewed. ef1 12:53 NS 0.9% 1000 ml IV at bolus once ordered. srm 13:40 Basic Metabolic Profile Reviewed. ef1 13:40 CBC with Diff Reviewed. ef1 13:40 Liver Profile Reviewed. ef1 13:40 Amylase Reviewed. ef1 13:40 Lipase Reviewed. ef1 14:40 CT ABD & PELVIS: No Contrast Reviewed. ef1 15:56 T-Sheet-- Draft Copy was scanned into [employer] and attached to record. klr Administered Medications: 12:46 Drug: NS 0.9% 1000 ml [sodium chloride 0.9 % intravenous solution] Route: IV; Rate: srm bolus; Site: right antecubital; 14:10 Follow up: IV Status: Completed infusion srm 15:00 Follow up: IV Status: Completed infusion; IV Intake: 1000ml dsf 12:46 Drug: Ondansetron 4 mg [ondansetron HCl 2 mg/mL intravenous solution (2 mL)] Route: srm IVP; Site: right femoral; 12:47 Drug: ketorolac 30 mg [ketorolac 30 mg/mL (1 mL) injection solution (1 mL)] Route: IVP; srm Site: right antecubital; 13:36 Follow up: Response: Pain is decreased srm Signatures: Dispatcher [employer] EDLita Akers RN RN srm Ganter, LoriLee, Brodie Reg Mariella Dhillon RN RN kr3 Reyna Robles PA-C PANorma Robles RN RN dsf Hafner, Jane, RN RN cjh Redder, Kathie klr The chart was reviewed and I authenticate all verbal orders and agree with the evaluation and treatment provided.Corrections: (The following items were deleted from the chart) 12:29 11:37 PSHx: none; pankaj barton Attachments: 12:38 [facility] Payment Agreement lg 15:56 T-Sheet-- Draft Copy klr Chart Complete MTDD
== END 2016-07-06 15:01 | disposition home or self-care (01) ==
LOC: M ED 11:27
DX: R30.0 Dysuria (principal); R31.9 Hematuria, unspecified; Z87.440 Personal history of urinary (tract) infections; F17.200 Nicotine dependence, unspecified, uncomplicated
CPT/HCPCS: 36415; 74176; 80048; 80076; 81001; 82150; 83690; 85025; 87086; 96361; 96374; 96375; 99284; J1885; J2405